=== PATIENT | male | born 1995 | race Caucasian/White ===

== ENCOUNTER 2017-03-21 20:21 | Emergency (ER) | payer OTHER ==
[~2017-03-21] VITALS: Ht 172.7 cm; Wt 68.0 kg
[~2017-03-21 20:21] MED LIST: AMOXICILLIN 50500 MG PO; BACTRIM DS 8001 TAB PO; BACTROBAN22 TP; CLARITIN 10MG T10 MG OR; CORTISPORIN (GE10 M1 OT; HYDROCODONE-APA1 TA1 PO; HYDROCODONE1 TABLET PO; KEFLEX 500MG.500 MG PO; NOMEDS *; PHENERGAN 25MG.25 M1 PO; TRAMADOL 50MG T50 MG PO; ZANTAC 300300 MG PO; ZITHROMAX Z-PA250 M2 PO; ZOFRAN4 MG PO
--- OUTSIDE RECORDS SUMMARY | 2017-03-21 20:30 | External Medical Summary Rpt | CCD ---
Author Author ALICIA Address Unknown Phone Purpose Continuity of Care Document - through 2016
--- OUTSIDE RECORDS SUMMARY | 2017-03-21 20:31 | External Medical Summary Rpt ---
Author Author ALICIA Bustos, ALICIA Bustos Organization [employer] Address Unknown Phone Unavailable
--- OUTSIDE RECORDS SUMMARY | 2017-03-21 20:31 | External Medical Summary Rpt | CCD ---
Demographics Preferred Language Pashto Marital Status Unknown Samaritan Affiliation Unknown Race Unknown Ethnic Group Unknown Author Author , ALICIA VARGAS Address Unknown Phone Immunization Unable to retrieve immunization data due to connection failure with Immunization Registry. Please try again later.
--- OUTSIDE RECORDS SUMMARY | 2017-03-21 20:31 | External Medical Summary Rpt | CCD ---
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 Please try again later.
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
[2017-03-21 21:58] VITALS: BP 138/72
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
== END 2017-03-21 21:58 | disposition home or self-care (01) ==
LOC: UTC 20:21 → ER 20:29 → UTC 20:29 → ER 21:58
DX: S30.22XA Contusion of scrotum and testes, initial encounter (principal); Y04.2XXA Assault by strike against or bumped into by another person, initial encounter; Y92.89 Other specified places as the place of occurrence of the external cause; S00.511A Abrasion of lip, initial encounter; J45.909 Unspecified asthma, uncomplicated